=== PATIENT | male | born 1945 | race Two or more races ===

== ENCOUNTER 2018-01-27 09:56 | Day surgery (SDC) | payer OTHER, MEDICAID ==
--- NOTE | 2018-01-26 22:19 | Pre-Procedure Note/Attestation ---
Pre-Procedure Note/Attestation Complete Prior to Procedure Planned Procedure: left Procedure Narrative: Removal of Cataract and placement of intraocular lens, left eye Indications for Procedure Pre-Operative Diagnosis: Cataract, combined, left eye Attestation I attest that I discussed the nature of the procedure; its benefits; risks and complications; and alternatives (and the risks and benefits of such alternatives ), prior to the procedure, with the patient (or the patient's legal off premise service representative). I attest that, if there was a reasonable possibility of needing a blood transfusion, the patient (or the patient's legal off premise service representative) was given the [facility] standardized written summary, pursuant to the [place] Blood Safety Act ([place] Health and Safety Code # 1645, as amended). I attest that I re-evaluated the patient just prior to the surgery and that there has been no change in the patient's H&P, except as documented below: Reinaldo Callahan MD Jan 26, 2018 22:20
[2018-01-27] VITALS (7 sets, daily range): BP systolic 130–142; BP diastolic 79–90
[~2018-01-27] VITALS: Ht 167.6 cm; Wt 83.9 kg
[~2018-01-27 09:56] MED LIST: AMLODIPINE BESYL5 MG ORAL; ASPIR 8181 MG ORAL; LOSARTAN POTASS25 MG ORAL; METFORMIN HCL500 M1 ORAL; SIMVASTATIN10 MG ORAL; TOPROL XL25 MG ORAL
[2018-01-27] MEDS: Vigamox Opth Soln 3ml LEFT EYE SCH ×3 (10:52→11:30)
[2018-01-27] MEDS: Akten 3.5% 1ml Btl LEFT EYE SCH ×3 (10:53→11:30)
[2018-01-27] MEDS: Cyclopentolate 1% Opth Sol 2ml LEFT EYE SCH ×3 (10:53→11:30)
[2018-01-27] MEDS: Phenylephrine 10% Opth Soln 5ml LEFT EYE SCH ×3 (10:56→11:30)
[2018-01-27] MEDS: Tobradex Opth Susp 2.5ml LEFT EYE SCH ×3 (10:56→11:30)
[2018-01-27] MEDS: Tropicamide 1% Opth 15ml Soln LEFT EYE SCH ×3 (11:02→11:30)
[2018-01-27 11:28] LABS: EOSINOPHILS % (AUTO) 3.5 % (0.0-3.0); HEMATOCRIT 45.4 % (42.0-52.0); HEMOGLOBIN 15.1 G/DL (14.2-18.0); LYMPHOCYTES % (AUTO) 35.1 % (20.0-45.0); MEAN CORPUSCULAR VOLUME 89 FL (80-99); MONOCYTES % (AUTO) 6.9 % (1.0-10.0); NEUTROPHILS % (AUTO) 53.5 % (45.0-75.0); PLATELET COUNT 170 K/UL (150-450); RED BLOOD COUNT 5.13 M/UL (4.70-6.10); RED CELL DISTRIBUTION WIDTH 11.8 % (11.6-14.8); WHITE BLOOD COUNT 5.3 K/UL (4.8-10.8)
[2018-01-27 11:37] LABS: ANION GAP 7 mmol/L (5-15); BLOOD UREA NITROGEN 11 mg/dL (7-18); CALCIUM 9.5 MG/DL (8.5-10.1); CARBON DIOXIDE 27 MMOL/L (21-32); CHLORIDE 103 MMOL/L (98-107); POTASSIUM 4.2 MMOL/L (3.5-5.1); SODIUM 137 MMOL/L (136-145)
[2018-01-27] MEDS ORDERED: VITAMIN D250000 UNI1 ORAL (11:44)
[2018-01-27] MEDS ORDERED: FERROUS SULFAT325 MG ORAL (11:44)
[2018-01-27] MEDS ORDERED: MULTI VITAMIN1 EACH ORAL (11:44)
--- NOTE | 2018-01-27 13:48 | Anethesia Preoperative Eval ---
Anesthesia Pre-op PMH/ROS General Date of Evaluation: Jan 27, 2018 Anesthesiologist: Hernandez ASA Score: ASA 2 Mallampati Score Class I : Soft palate, uvula, fauces, pillars visible Class II: Soft palate, uvula, fauces visible Class III: Soft palate, base of uvula visible Class IV: Only hard plate visible Mallampati Classification: Class III Surgeon: [place] Diagnosis: Left cataract Surgical Procedure: Left cataract extraction with IOL Anesthesia History: none Family History: no anesthesia problems Allergies: Coded Allergies: NO KNOWN ALLERGIES (Unverified Allergy, 01/25/13) Medications: see eMAR Patient NPO?: Yes NPO Date: Jan 26, 2018 NPO Time: 20:00 Past Medical History Cardiovascular: Reports: HTN, other - HLD; Denies: CAD, OR, valve dz, arrhythmia Pulmonary: Denies: asthma, COPD, ANA, other Gastrointestinal/Genitourinary: Denies: GERD, CRI, ESRD, other Neurologic/Psychiatric: Denies: dementia, CVA, depression/anxiety, TIA, other Endocrine: Reports: DM; Denies: hypothyroidism, steroids, other HEENT: Denies: cataract (L), cataract (R), glaucoma, SITKA (L), SITKA (R), other Hematology/Immune: Denies: anemia, DVT, bleeding disorder, other Musculoskeletal/Integumentary: Denies: OA, RA, DJD, DDD, edema, other PSxH Narrative: right cataract, RIHR Anesthesia Pre-op Phys. Exam Physician Exam Last Vital Signs Date Time Temp Pulse Resp B/P (MAP) Pulse Ox O2 Delivery O2 Flow Rate FiO2 01/27/18 11:10 Room Air 01/27/18 10:50 97.5 75 20 142/81 99 Constitutional: NAD Cardiovascular: RRR Respiratory: CTA Airway Exam Mallampati Score: Class III MO: limited ROM: limited Anesthesia Pre-op A/P Labs Hematology Test 01/27/18 11:15 White Blood Count 5.3 K/UL (4.8-10.8) Red Blood Count 5.13 M/UL (4.70-6.10) Hemoglobin 15.1 G/DL (14.2-18.0) Hematocrit 45.4 % (42.0-52.0) Mean Corpuscular Volume 89 FL (80-99) Mean Corpuscular Hemoglobin 29.4 PG (27.0-31.0) Mean Corpuscular Hemoglobin Concent 33.2 G/DL (32.0-36.0) Red Cell Distribution Width 11.8 % (11.6-14.8) Platelet Count 170 K/UL (150-450) Mean Platelet Volume 6.9 FL (6.5-10.1) Neutrophils (%) (Auto) 53.5 % (45.0-75.0) Lymphocytes (%) (Auto) 35.1 % (20.0-45.0) Monocytes (%) (Auto) 6.9 % (1.0-10.0) Eosinophils (%) (Auto) 3.5 % (0.0-3.0) H Basophils (%) (Auto) 1.0 % (0.0-2.0) Chemistry Test 01/27/18 11:15 Sodium Level 137 MMOL/L (136-145) Potassium Level 4.2 MMOL/L (3.5-5.1) Chloride Level 103 MMOL/L (98-107) Carbon Dioxide Level 27 MMOL/L (21-32) Anion Gap 7 mmol/L (5-15) Blood Urea Nitrogen 11 mg/dL (7-18) Creatinine 1.0 MG/DL (0.55-1.30) Estimat Glomerular Filtration Rate mL/min (>60) Glucose Level 118 MG/DL (74-106) H Calcium Level 9.5 MG/DL (8.5-10.1) Studies Pre-op Studies: EKG - se Risk Assessment & Plan Assessment: ASA II Plan: MAC Status Change Before Surgery: No Pre-Antibiotics Drug: N/A Sheree Diallo MD Jan 27, 2018 13:48
[2018-01-27] MEDS ORDERED: LR 1000ml 1,000 ML IVLG SCH (13:50)
[2018-01-27] MEDS ORDERED: DiphenhydrAMINE 50mg/ml Inj IVP PRN (13:50)
[2018-01-27] MEDS ORDERED: Dexamethasone 4mg/ml vial ONE (13:59)
[2018-01-27] MEDS ORDERED: BSS 500ml btl ONE ×2 (13:59→18:36)
[2018-01-27] MEDS ORDERED: BSS 15ml BTL ONE (13:59)
[2018-01-27] MEDS ORDERED: Carbachol 0.01% Op Soln 1.5ml vial ONE (13:59)
[2018-01-27] MEDS ORDERED: Povidone-Iodine 5% opth solution ONE (13:59)
[2018-01-27] MEDS ORDERED: EPINEPHrine 1mg/1ml Amp ONE ×2 (13:59→18:35)
[2018-01-27] MEDS ORDERED: Lidocaine 1% MPF 10mg/ml 5ml ONE (13:59)
[2018-01-27] MEDS ORDERED: Sodium Hyaluronate 10 mg/ml 0.85ml ONE ×2 (14:00→18:36)
[2018-01-27] MEDS ORDERED: Sterile Water Irrig 1000ml IRRIG ONE (14:00)
[2018-01-27] MEDS ORDERED: Propofol 200mg/20ml IV ONE (14:00)
[2018-01-27] MEDS ORDERED: Tetracaine 0.5% Opth 4ml Soln ONE (14:00)
[2018-01-27] MEDS ORDERED: NS Irrig 1000ml ONE (14:00)
[2018-01-27] MEDS ORDERED: LR 1000ml ONE (14:00)
[2018-01-27] MEDS ORDERED: Midazolam 2mg/2ml Inj ONE (14:05)
[2018-01-27] MEDS ORDERED: DiphenhydrAMINE 50mg/ml Inj ONE (14:05)
[2018-01-27] MEDS ORDERED: fentaNYL 100 mcg/2 mL IV ONE (14:05)
[2018-01-27] MEDS ORDERED: Bupivacaine 0.75% 30ml vial INJ ONE (14:39)
[2018-01-27] MEDS ORDERED: Lidocaine 2% MPF 5ml Vial INJ ONE (14:39)
--- NOTE | 2018-01-27 15:48 | Immediate Post-Op Evaluation ---
Immediate Post-Op Evalulation Immediate Post-Op Evalulation Procedure: Left cataract extraction with IOL Date of Evaluation: Jan 27, 2018 Time of Evaluation: 15:48 IV Fluids: 500 Blood Products: 0 Estimated Blood Loss: 0 Urinary Output: 0 Blood Pressure Systolic: 132 Blood Pressure Diastolic: 90 Pulse Rate: 76 Respiratory Rate: 16 O2 Sat by Pulse Oximetry: 98 Temperature (Fahrenheit): 97.2 Pain Score (1-10): 0 Nausea: No Vomiting: No Complications 0 Patient Status: awake, reacts, patent, none Hydration Status: adequate Drug: N/A Sheree Diallo MD Jan 27, 2018 15:48
--- NOTE | 2018-01-27 15:49 | Discharge Instructions ---
Discharge Instructions Discharge Instructions Follow Up Orders Leave patch and shield in place until appointment with Dr Callahan tomorrow Followup with Dr Callahan tomorrow in his office For Congestive Heart Failure Reminder Report to your physician any weight gain of 5 pounds or more in one week. Reinaldo Callahan MD Jan 27, 2018 15:49
--- NOTE | 2018-01-27 15:49 | 48 Hour Post Anesthesia Eval ---
Post Anesthesia Evaluation Procedure: Left cataract extraction with IOL Date of Evaluation: Jan 27, 2018 Airway: patent Nausea: No Vomiting: No Hydration Status: adequate Cardiopulmonary Status: at baseline Mental Status/LOC: patient returned to baseline Post-Anesthesia Complications: 0 Follow-up care needed: ready to discharge Sheree Diallo MD Jan 27, 2018 15:49
--- NOTE | 2018-01-27 15:53 | Brief Operative Note ---
Immediate Post Operative Note Operative Note Pre-op Diagnosis: Cataract, combined, left eye Procedure: Phaco PC IOL, OS Use of vision blue for capsular staining Post-op Diagnosis: same as pre-op Surgeon: Sherin Callahan MD, MS Equipment Operator Intermodal Yard: none Anesthesiologist: Dr Coe Anesthesia: local, MAC Specimen: none Complications: none Fluids: see chart Implant(s) used?: Yes - ZCB00 19.0 Reinaldo Echols MD Jan 27, 2018 15:53
--- NOTE | 2018-01-27 17:00 | Pre-op HX & Phy Repo 2 SIG ---
DATE OF ADMISSION: 01/27/2018 PRESURGICAL INTERNAL MEDICINE HISTORY AND PHYSICAL REASON FOR EVALUATION: I was asked by Dr. Reinaldo Callahan to see this 72-year-old male who is going for elective surgery of the left eye. The patient has nuclear sclerotic cataract left eye. Please see full ophthalmologic history and Physical by Dr. Reinaldo Callahan. The patient was examined. Chart was At [facility]. The patient spoke limited [place] and and sign at bedside helped with translation. PAST MEDICAL HISTORY/REVIEW OF SYSTEMS: Remarkable for hypertension, type 2 diabetes. No history of stroke or seizures. Denies history of pulmonary problem, asthma, or bronchitis. No history of GI bleeding or hepatitis. Denies history of thyroid problem or renal failure. No prostate problem. No anemia. Denies history of hepatitis. PAST SURGICAL HISTORY: Right eye surgery cataract, right inguinal hernia repair, and history of hemorrhoidectomy long time ago. FAMILY HISTORY: Father at the age of 54 from complication of stroke and mother past 90 of old age. ALLERGIES: To pollen, needing multiple medications, possible . MEDICATIONS AT PRESENT TIME: Metformin 500 mg twice a day, metoprolol 25 mg daily, simvastatin 10 mg daily, amlodipine 5 mg daily, losartan 25 mg daily, vitamin D 50,000 units once a week, multivitamin Centrum, baby aspirin 81 mg daily, ferrous sulfate 325 mg daily. HABITS: The patient denies history of smoking or alcohol habits. No street drugs. PHYSICAL EXAMINATION: GENERAL: Alert, well-developed, well-nourished male in his 70s. Weight 185 pounds and 5 feet 6 inches tall. VITAL SIGNS: Blood pressure 142/81, temperature 97.5, pulse 76 per minute, O2 saturation 99% on room air. SKIN: Warm and dry. No rashes. No open wound. Lymph nodes not enlarged. HEAD: Normocephalic and atraumatic. Ears clear. Bald. Nose clear. No discharge. Eyes, full description per Dr. Reinaldo Callahan. Mouth, clear and moist. No dentures. NECK: Supple. No jugular venous distention. Carotid artery +2. Trachea midline. CHEST: No deformity or asymmetry. LUNGS: Clear to auscultation and percussion. No rales or rhonchi. ABDOMEN: Soft, obese. No palpable mass. No rebound. EXTREMITIES: No edema. No calf tenderness. No varicose vein. GENITOURINARY TRACT: No dysuria, no CVA tenderness. NEUROLOGIC: No tremor. No nystagmus. DIAGNOSTIC DATA/LABORATORY DATA: Electrocardiogram, normal sinus rhythm, 76 per minute, normal ECG. The patient's last p.o. intake was at 7 p.m. yesterday. Blood sugar 109 mg/dL. IMPRESSION: 1. Cataract, left eye. 2. Hypertension, controlled. 3. Diabetes mellitus type 2, controlled. 4. Hyperlipidemia. PLAN: Cataract extraction, left eye with intraocular lens implant per Dr. Reinaldo Callahan. CONCLUSION: The patient's vital signs are stable. EKG is normal. The patient did not eat or drink from 7 p.m. yesterday. The patient's blood sugar control today is 109 fasting. The patient's condition is optimized for surgery. Thank you very much Dr. Reinaldo Callahan for privilege to participate in presurgical care of this interesting patient. Merrill Ferrell M.D. DR: JAMI JOB#: [id number] CC:
--- NOTE | 2018-02-01 14:22 | Cardiology Report ---
APPROVED REPORT EKG Measurement Heart [id number] Normal sinus rhythm Normal ECG
--- NOTE | 2018-02-03 10:45 | Operative Note - Dictated ---
DATE OF OPERATION: 01/27/2018 SURGEON: Reinaldo Callahan M.D. FILM PROCESS OPERATOR SURGEON: None. ANESTHESIOLOGIST: Sheree Coe M.D. ANESTHESIA: Local/standby/monitored anesthesia care. PREOPERATIVE DIAGNOSIS: Combined dense cataract, left eye. POSTOPERATIVE DIAGNOSIS: Combined dense cataract, left eye. PROCEDURES: 1. Phacoemulsification of cataract, left eye. 2. Placement of posterior chamber intraocular lens, left eye (model ZCB00, power 19.0). 3. Use of VisionBlue, left eye. SPECIMENS: None. COMPLICATIONS: None. INDICATIONS FOR SURGERY: The patient has had a painless progressive decrease in visual acuity in the left eye secondary to cataract. The patient understands the risks of surgery including infection, bleeding, need for further surgery, loss of vision, no improvement in vision, loss of the eye, loss of life, glaucoma, retinal detachment, understands these risks and elects to proceed with surgery. FINDINGS: The patient had a +3 nuclear sclerotic cataract as well as +3 to 4 cortical cataract that was in addition to a +3 anterior subcapsular cataract. This necessitated using the VisionBlue for anterior capsular staining. OPERATIVE NOTE: After informed consent was obtained, the patient was brought into the operating room, placed in supine position. Cardiac and respiratory monitors were attached. A time-out was performed and all criteria were met in the room and everyone in the room agreed. The left eye was draped and prepped in sterile manner for ocular surgery. A lid speculum was placed in the eye. A 1% lidocaine preservative-free was injected at the approximate 2 o'clock limbus. A conjunctiva peritomy from approximately 1 o'clock to 3 o'clock was made and dissected posteriorly. Hemostasis was maintained with bipolar cautery. A 2.6 mm limbal incision was made centered at approximately 2 o'clock and dissected anteriorly. A paracentesis was made at approximately 5:30 and Shugarcaine was injected into the anterior chamber followed by an air bubble. VisionBlue was then injected into the anterior chamber and the anterior capsule was stained and then, it was irrigated freely. Healon was injected into the anterior chamber and the anterior chamber was then entered using a 2.6 mm keratome through the limbal incision. An anterior capsulorrhexis was then performed. Hydrodissection and hydrodelineation of the lens was then performed. The lens was then phacoemulsified using a divide and conquer four-quadrant technique. Residual cortical material was then aspirated. Healon was injected into the anterior chamber and capsular bag. The lens was taken from its package, placed into the cartridge and the tip of the cartridge was placed through the limbal incision. The lens was injected into the capsular bag and centered nicely with a [place] hook. Healon was aspirated from the anterior chamber and capsular bag. One 10-0 nylon interrupted suture was placed through the limbal incision and the knot was rotated and buried. Care was taken during the entire procedure not to touch the . The wound was checked and found to be watertight. The conjunctiva was then closed with forceps cautery. The lid speculum and drapes were removed from the eye and drops of Vigamox and Pred Forte were applied to the eye followed by Maxitrol ointment and a shield. The patient tolerated the procedure well and left the operating room in awake, alert, and in stable condition. Reinaldo Callahan M.D. DR: MARION JOB#: [id number] CC:
== END 2018-01-27 16:25 | disposition home or self-care (01) ==
LOC: SUR 09:56
DX: H25.12 Age-related nuclear cataract, left eye (principal); H25.012 Cortical age-related cataract, left eye; H25.032 Anterior subcapsular polar age-related cataract, left eye; I10 Essential (primary) hypertension; E11.9 Type 2 diabetes mellitus without complications; E78.5 Hyperlipidemia, unspecified; Z79.82 Long term (current) use of aspirin
CPT/HCPCS: 36415; 66984; 80048; 82962; 85025; 93005; J0171; J1100; J1200; J2250; J2704; J3010; J3490; V2632; 94003; 94150